=== PATIENT | male | born 1965 | race Caucasian/White ===

== ENCOUNTER 2021-01-11 21:14 | Emergency (ER) | payer OTHER, BC ==
[~2021-01-11] VITALS: Ht 182.9 cm; Wt 94.3 kg
[~2021-01-11 21:14] MED LIST: FISH1CAP50 PO; FLUO20CA30 PO; ROSU20TA23 PO
[2021-01-11] MEDS ORDERED: LIDOCAINE HCL 2% VISCOUS 15 ML UDCUP ONE (21:30)
[2021-01-11] MEDS ORDERED: LIDOCAINE HCL 400MG/20ML VIAL ONE (21:32)
[2021-01-11] MEDS ORDERED: PREDNISONE 20 MG TABLET ONE (21:35)
[2021-01-11] MEDS ORDERED: METH4TAB3 PO (22:10)
[2021-01-11] MEDS ORDERED: FAMO-136 PO (22:10)
== END 2021-01-11 22:23 | disposition home or self-care (01) ==
LOC: EDH 21:14
DX: T63.441A Toxic effect of venom of bees, accidental (unintentional), initial encounter (principal); T16.2XXA Foreign body in left ear, initial encounter; Z79.899 Other long term (current) drug therapy; X58.XXXA Exposure to other specified factors, initial encounter; Y93.89 Activity, other specified; Y92.89 Other specified places as the place of occurrence of the external cause; Y99.8 Other external cause status
CPT/HCPCS: 69200; 99284; J3490

== ENCOUNTER 2025-06-16 06:03 | Day surgery (SDC) | payer BC, OTHER ==
[~2025-06-16 06:03] MED LIST changes: +ATOR10 PO; -FISH1CAP50 PO; -FLUO20CA30 PO; +OMEG1CAP31 PO; -ROSU20TA23 PO
[2025-06-16 06:20] VITALS: BP 135/72; PULSE 60; RESP 14; TEMP 97.3
[2025-06-16 07:31] LABS: INR 0.99 (0.85-1.15)
[2025-06-16] MEDS ORDERED: MIDAZOLAM HCL 1 MG/ML 2ML VIAL ONE (07:32)
[2025-06-16] MEDS ORDERED: HEParin-NS 1,000 UNIT/500 ML 500 ML IV ONE (07:34)
[2025-06-16] MEDS ORDERED: LIDOCAINE HCL 1% MDV 50ML VIAL ONE (07:34)
[2025-06-16 08:20] VITALS: BP 133/74; PULSE 59; RESP 16; TEMP 97.5
--- NOTE | 2025-06-16 08:20 | NUR ---
RIGHT SIDE CHEST ASYMPTOMATIC.
[2025-06-16 08:35] VITALS: BP 131/74; PULSE 59; RESP 16
[2025-06-16 08:50] VITALS: BP 128/89; PULSE 57; RESP 14
--- NOTE | 2025-06-16 08:57 | NUR ---
BOTH PT AND SPOUSE GIVEN VERBAL AND WRITTEN DISCHARGE INSTRUCTIONS. IV REMOVED SITE ASYMPTOMATIC. PT TAKEN OUT VIA WHEELCHAIR SPOUSE DRIVING.
[2025-06-16 09:05] VITALS: BP 132/75; PULSE 60; RESP 14
--- NOTE | 2025-06-16 13:14 | CCATH ---
PROCEDURE PERFORMED: Fluoroscopy guided removal of right-sided Port-A-Cath. INDICATION FOR PROCEDURE: This is a 59-year-old male, who has undergone chemotherapy and is here for removal of Port-A-Cath. PROCEDURE: The right upper chest and neck region was prepped and draped in the usual sterile technique. The patient was given a titrate with 100 mcg of fentanyl and 1 mg of Versed. A 1% Xylocaine was used for local anesthetic. The Port-A-Cath was infiltrated around the inferior aspect of the small incision was made and the Port-A-Cath was carefully dissected and removed in total. There is no foreign body seen in the chest. Post removal, the wound was closed with 3-0 Vicryl subcuticular closure and the patient had Steri-Strips and Dermabond applied. The patient tolerated the procedure well. IMPRESSION: Removal of a right-sided Port-A-Cath under fluoroscopy guidance. TID: [id number] RECEIPT: [id number]
== END 2025-06-16 09:06 | disposition home or self-care (01) ==
LOC: DAH 06:03
PROVIDERS: ATTEND Internal Medicine Medical Oncology
DX: Z45.2 Encounter for adjustment and management of vascular access device (principal); C19 Malignant neoplasm of rectosigmoid junction; N40.1 Benign prostatic hyperplasia with lower urinary tract symptoms; E78.5 Hyperlipidemia, unspecified; Z79.01 Long term (current) use of anticoagulants; Z79.899 Other long term (current) drug therapy
CPT/HCPCS: 99156; 99157; 77001; 36590; 85610; 85730; 36415; A4223 ×3; J3010; J2250; J1644; J3490; A4215; A4222; A4221; A4663; A4216; A4606